=== PATIENT | male | born 1985 | race Caucasian/White ===

== ENCOUNTER → 2020-12-30 | Outpatient (CLI) | payer OTHER ==
--- NOTE | 2021-01-02 08:40 | ECHO ---
DATE OF PROCEDURE: 12/30/2020 Age: 35 Gender: Male Height: 67 inches Weight: 162 pounds Body surface area: 1.85 m2 PATIENT LOCATION: Outpatient. REFERRING PHYSICIAN: Sherman Lee PA-C INDICATION: Upper extremity numbness - rule out cardiac origin of embolic material. MEASUREMENTS: 2D Measurements: RV 3.6 cm LV 4.6 cm Septum 1.0 cm Posterior wall 1.0 cm Aortic Root 3.2 cm LA 3.6 cm LVEF 60% Doppler Measurements: AV 1.0 m/s LVOT 1.0 cm LVOT diameter 2.2 cm MV-E 52, A 44, E/A ratio 1.2 Early mitral deceleration time 246 msec E prime medial 7.2, A prime medial 9, E prime lateral 14.8 PCWP 7.8 mmHg PV 0.75 m/s Pulmonary artery acceleration time 130 msec RVSP 24 mmHg IVC 1.8 cm COMMENTS: Normal sinus rhythm without intraventricular conduction disturbance. M-mode and two-dimensional echocardiography was performed with pulse, continuous wave, color flow, and tissue Doppler studies. Normal left ventricular size, wall thickness, and wall motion. Normal left atrial size and Doppler assessment of LV diastolic function and estimated mean left atrial pressure. Normal right heart chamber sizes and motion and estimated pulmonary arterial pressure. Normal IVC size and collapse. Normal aortic dimensions. Normal appearing and functioning valvular structures. No apparent intracardiac mass or pericardial effusion. MTDD
== END ==
LOC: M CARPUL 08:18
PROVIDERS: ATTEND Physician Assistant
DX: R20.0 Anesthesia of skin (principal); R01.1 Cardiac murmur, unspecified